=== PATIENT | female | born 1985 | race Caucasian/White ===

== ENCOUNTER → 2016-08-20 | Outpatient (CLI) | payer OTHER ==
[~2016-08-20] MED LIST: 'PARAFON FORTE500 M1 PO; AMOXICILLIN500 M2 PO; ANTIVERT/2525 MG PO; BACTRIM DS 8001 TA1 PO; CIPROFLOXACIN500 MG PO; DEBROX15 ML OT; KEFLEX500 MG PO; MOTRIN800 MG PO; NAPROSYN500 MG PO; NKHM; SYNTHROID RP0.088 MG PO; ULTRAM50 MG PO; VIBRAMYCIN100 MG PO; VICODIN 5/500 505 MG PO; VICODIN 500 MG-1 TAB PO; ZYRTEC10 MG PO
[2016-08-20 12:42] LABS: HEMATOCRIT 37.3 % (37.0-47.0); HEMOGLOBIN 11.8 g/dl (12.0-16.0); MEAN CELL VOLUME 93.7 fl (81.0-99.0); MEAN CORPUSCULAR HGB 29.6 pg (27.0-31.0); MEAN CORPUSCULAR HGB CONC 31.6 g/dl (33.0-37.0); MEAN PLATELET VOLUME 9.5 fl (9.6-12.3); RED BLOOD COUNT 3.98 10*6/uL (4.10-5.10); RED CELL DISTRI WIDTH 12.6 % (0-14.5)
[2016-08-20 13:21] LABS: ALBUMIN 3.7 gm/dl (3.1-4.5); ALKALINE PHOSPHATASE 54 U/L (45-117); BILIRUBIN, TOTAL 0.4 mg/dl (0.2-1.0); BUN 11 mg/dl (7-24); CARBON DIOXIDE 27 mmol/L (21-32); CHLORIDE 106 mmol/L (98-107); CHOLESTEROL 185 mg/dL (<200); EST GLOM FILT AFRICAN AMERICAN > 60 ml/min; GLUCOSE 89 mg/dL (65-99); HDL CHOLESTEROL 52 mg/dl (40-60); LDL CHOLESTEROL 91 mg/dL (9-159); POTASSIUM 3.8 mmol/L (3.5-5.1); SGOT/AST 9 IU/L (3-35); SGPT/ALT 21 U/L (12-78); SODIUM 140 mmol/L (136-145); THYROID STIM HORMONE (HS) 0.732 uIU/ml (0.358-4.75); TOTAL PROTEIN 6.9 gm/dL (6.4-8.2); TRIGLYCERIDES 211 mg/dl (<150); VLDL CHOLESTEROL 42 mg/dL (6-40)
== END | disposition home or self-care (01) ==
LOC: LAB 12:12
PROVIDERS: Family Medicine
DX: E03.9 Hypothyroidism, unspecified (principal); Z79.899 Other long term (current) drug therapy

== ENCOUNTER → 2017-05-22 | Outpatient (CLI) | payer OTHER ==
[2017-05-22 11:38] LABS: HEMATOCRIT 36.4 % (37.0-47.0); HEMOGLOBIN 11.6 g/dl (12.0-16.0); MEAN CELL VOLUME 89.4 fl (81.0-99.0); MEAN CORPUSCULAR HGB 28.5 pg (27.0-31.0); MEAN CORPUSCULAR HGB CONC 31.9 g/dl (33.0-37.0); MEAN PLATELET VOLUME 9.6 fl (9.6-12.3); RED BLOOD COUNT 4.07 10*6/uL (4.10-5.10); RED CELL DISTRI WIDTH 12.5 % (0-14.5); WHITE BLOOD COUNT 6.5 10*3/uL (4.8-10.8)
[2017-05-22 12:12] LABS: ALBUMIN 3.7 gm/dl (3.1-4.5); ALKALINE PHOSPHATASE 76 U/L (45-117); BUN 12 mg/dl (7-24); CHLORIDE 106 mmol/L (98-107); CHOLESTEROL 207 mg/dL (<200); CREATININE 0.68 mg/dL (0.55-1.02); FREE T4 0.85 ng/dl (0.76-1.46); HDL CHOLESTEROL 41 mg/dl (40-60); LDL CHOLESTEROL 117 mg/dL (9-159); POTASSIUM 3.7 mmol/L (3.5-5.1); SGOT/AST 24 IU/L (3-35); SGPT/ALT 50 U/L (12-78); SODIUM 140 mmol/L (136-145); TOTAL PROTEIN 7.6 gm/dL (6.4-8.2); TRIGLYCERIDES 247 mg/dl (<150); VLDL CHOLESTEROL 49 mg/dL (6-40)
[2017-05-23 06:09] LABS: FREE T3 010389 3.8 pg/mL (2.0-4.4)
[2017-05-24 04:06] LABS: TESTOSTERONE FREE, (DIRECT) 2.8 pg/mL (0.0-4.2)
== END | disposition home or self-care (01) ==
LOC: LAB 11:07
PROVIDERS: Family Medicine
DX: E03.9 Hypothyroidism, unspecified (principal); R63.5 Abnormal weight gain; E55.9 Vitamin D deficiency, unspecified; E74.00 Glycogen storage disease, unspecified; F41.1 Generalized anxiety disorder; R53.83 Other fatigue

== ENCOUNTER → 2017-11-26 | Outpatient (CLI) | payer OTHER | END | disposition home or self-care (01) | LOC: US 11-19 09:30 | DX: K76.0 Fatty (change of) liver, not elsewhere classified (principal); Z90.49 Acquired absence of other specified parts of digestive tract ==

== ENCOUNTER → 2017-11-28 | Outpatient (CLI) | payer OTHER | END | disposition home or self-care (01) | LOC: US 11-26 13:30 | DX: R10.84 Generalized abdominal pain (principal); R10.2 Pelvic and perineal pain ==

== ENCOUNTER 2018-07-13 18:29 | Emergency (ER) | payer OTHER ==
[~2018-07-13] VITALS: Wt 76.2 kg
--- NOTE | ~2018-07-13 | EKG ---
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
[2018-07-13 19:11] LABS: HEMOGLOBIN 12.4 g/dl (12.0-16.0); MEAN CORPUSCULAR HGB 28.3 pg (27.0-31.0); MEAN CORPUSCULAR HGB CONC 31.8 g/dl (33.0-37.0); MEAN PLATELET VOLUME 9.2 fl (9.6-12.3); PLATELET COUNT AUTOMATED 286 10*3/uL (130-400); RED BLOOD COUNT 4.38 10*6/uL (4.10-5.10); RED CELL DISTRI WIDTH 13.3 % (0-14.5); WHITE BLOOD COUNT 14.8 10*3/uL (4.8-10.8)
[2018-07-13 19:29] LABS: ALBUMIN 3.7 gm/dl (3.1-4.5); ALKALINE PHOSPHATASE 74 U/L (45-117); BUN 11 mg/dl (7-24); CHLORIDE 107 mmol/L (98-107); CREATININE 0.81 mg/dL (0.55-1.02); LIPASE 246 U/L (73-393); POTASSIUM 3.6 mmol/L (3.5-5.1); SGOT/AST 10 IU/L (3-35); SGPT/ALT 23 U/L (12-78); SODIUM 138 mmol/L (136-145); TOTAL PROTEIN 8.1 gm/dL (6.4-8.2)
[2018-07-13 19:30] LABS: TROPONIN I < 0.015 ng/ml (<0.045)
[2018-07-13 19:50] LABS: PLATELET SUFFICIENCY NORMAL (NORMAL); TOTAL CELLS COUNTED 100 #CELLS
[2018-07-13 20:27] LABS: BILIRUBIN NEGATIVE (NEGATIVE); BLOOD NEGATIVE (NEGATIVE); CLARITY CLEAR (CLEAR); COLOR YELLOW (YELLOW); GLUCOSE NEGATIVE (NEGATIVE); KETONE NEGATIVE (NEGATIVE); LEUKO ESTERASE NEGATIVE (NEGATIVE); NITRITE NEGATIVE (NEGATIVE); PH 6.5 (5.0-9.0); SPECIFIC GRAVITY 1.025 (1.005-1.030); UROBILINOGEN 0.2 E.U./dl (0.2-1.0)
[2018-07-13 20:42] LABS: BACTERIA 2+; EPITHELIAL CELLS 16-20; RBC 0-2 rbc/hpf (0-2)
[2018-07-13] MEDS ORDERED: ANAPROX DS550 MG PO (23:20)
== END 2018-07-13 23:38 | disposition home or self-care (01) ==
LOC: ED 18:29
PROVIDERS: Nurse Practitioner Family
DX: R09.1 Pleurisy (principal); R42 Dizziness and giddiness; R19.7 Diarrhea, unspecified; R11.0 Nausea; R00.0 Tachycardia, unspecified; R07.9 Chest pain, unspecified; R10.84 Generalized abdominal pain; E03.9 Hypothyroidism, unspecified; Z79.899 Other long term (current) drug therapy; Z90.49 Acquired absence of other specified parts of digestive tract

== ENCOUNTER 2018-10-12 07:50 | Emergency (ER) | payer OTHER ==
[~2018-10-12] VITALS: Ht 162.5 cm; Wt 80.7 kg
[~2018-10-12 07:50] MED LIST changes: +ANAPROX DS550 MG PO; +PYRIDIUM200 M1 PO; +SEPTDS PO
[2018-10-12 08:05] LABS: BILIRUBIN NEGATIVE (NEGATIVE); BLOOD TRACE-INTACT (NEGATIVE); CLARITY CLOUDY (CLEAR); COLOR YELLOW (YELLOW); GLUCOSE NEGATIVE (NEGATIVE); KETONE NEGATIVE (NEGATIVE); LEUKO ESTERASE 3+ (NEGATIVE); NITRITE NEGATIVE (NEGATIVE); SPECIFIC GRAVITY <= 1.005 (1.005-1.030); UROBILINOGEN 0.2 E.U./dl (0.2-1.0)
[2018-10-12 08:27] LABS: BACTERIA 3+; WBC TNTC wbc/hpf (0-5)
[2018-10-12] MEDS ORDERED: SEPTDS PO (08:40)
== END 2018-10-12 09:03 | disposition home or self-care (01) ==
LOC: ED 07:50
PROVIDERS: Emergency Medicine
DX: N39.0 Urinary tract infection, site not specified (principal); Z79.899 Other long term (current) drug therapy

== ENCOUNTER → 2019-01-24 | Outpatient (CLI) | payer OTHER ==
[~2019-01-24] MED LIST changes: +CLINDAMYCIN HC300 MG PO; +Motrin,Rufen800 MG PO; +NORCO 10-325 T1 EACH PO
[2019-01-24 15:31] LABS: HEMATOCRIT 37.4 % (37.0-47.0); HEMOGLOBIN 11.7 g/dl (12.0-16.0); MEAN CELL VOLUME 92.8 fl (81.0-99.0); MEAN CORPUSCULAR HGB CONC 31.3 g/dl (33.0-37.0); MEAN PLATELET VOLUME 9.2 fl (9.6-12.3); RED BLOOD COUNT 4.03 10*6/uL (4.10-5.10); RED CELL DISTRI WIDTH 12.7 % (0-14.5); WHITE BLOOD COUNT 7.1 10*3/uL (4.8-10.8)
[2019-01-24 16:09] LABS: ALBUMIN 3.7 gm/dl (3.1-4.5); ALKALINE PHOSPHATASE 100 U/L (45-117); BUN 19 mg/dl (7-24); CHLORIDE 106 mmol/L (98-107); CHOLESTEROL 182 mg/dL (<200); CREATININE 0.72 mg/dL (0.55-1.02); FREE T4 1.04 ng/dl (0.76-1.46); HDL CHOLESTEROL 34 mg/dl (40-60); LDL CHOLESTEROL 86 mg/dL (9-159); POTASSIUM 3.8 mmol/L (3.5-5.1); SGOT/AST 107 IU/L (3-35); SGPT/ALT 93 U/L (12-78); SODIUM 140 mmol/L (136-145); TOTAL PROTEIN 7.7 gm/dL (6.4-8.2); TRIGLYCERIDES 312 mg/dl (<150); VLDL CHOLESTEROL 62 mg/dL (6-40)
== END | disposition home or self-care (01) ==
LOC: LAB 14:37
PROVIDERS: Family Medicine
DX: E03.9 Hypothyroidism, unspecified (principal); E55.9 Vitamin D deficiency, unspecified; E78.00 Pure hypercholesterolemia, unspecified; R53.83 Other fatigue

== ENCOUNTER 2019-02-10 06:37 | Emergency (ER) | payer OTHER ==
[~2019-02-10] VITALS: Ht 162.5 cm; Wt 80.7 kg
[~2019-02-10 06:37] MED LIST changes: -CLINDAMYCIN HC300 MG PO; -Motrin,Rufen800 MG PO; -NORCO 10-325 T1 EACH PO
[2019-02-10] MEDS ORDERED: AMOXICILLIN500 M2 PO (07:05)
[2019-02-10] MEDS ORDERED: NORCO 10-325 T1 EACH PO (07:07)
[2019-02-11] MEDS ORDERED: CLINDAMYCIN HC300 MG PO (02:50)
[2019-02-11] MEDS ORDERED: Motrin,Rufen800 MG PO (02:51)
== END 2019-02-10 07:19 | disposition home or self-care (01) ==
LOC: ED 06:37
DX: K08.89 Other specified disorders of teeth and supporting structures (principal); R51 Headache; Z79.899 Other long term (current) drug therapy

== ENCOUNTER 2019-02-11 00:55 | Emergency (ER) | payer OTHER ==
[~2019-02-11] VITALS: Ht 162.5 cm; Wt 80.7 kg
[~2019-02-11 00:55] MED LIST changes: +NORCO 10-325 T1 EACH PO
[2019-02-11 01:21] LABS: BASO % 0.3 % (0.0-1.0); EOS # 0.1 10*3/uL (0.0-0.4); EOS % 0.6 % (1.0-4.0); HEMATOCRIT 36.8 % (37.0-47.0); HEMOGLOBIN 11.7 g/dl (12.0-16.0); LYMPH # 2.2 10*3/uL (1.3-4.4); LYMPH % 19.4 % (27.0-41.0); MEAN CELL VOLUME 90.9 fl (81.0-99.0); MEAN CORPUSCULAR HGB 28.9 pg (27.0-31.0); MEAN CORPUSCULAR HGB CONC 31.8 g/dl (33.0-37.0); MEAN PLATELET VOLUME 9.3 fl (9.6-12.3); MONO # 0.6 10*3/uL (0.1-1.0); MONO % 5.3 % (3.0-9.0); NEUT # 8.5 10*3/uL (2.3-7.9); NEUT % 74.1 % (47.0-73.0); PLATELET COUNT AUTOMATED 328 10*3/uL (130-400); RED BLOOD COUNT 4.05 10*6/uL (4.10-5.10); RED CELL DISTRI WIDTH 12.7 % (0-14.5); WHITE BLOOD COUNT 11.5 10*3/uL (4.8-10.8)
[2019-02-11 01:34] LABS: BUN 10 mg/dl (7-24); CHLORIDE 105 mmol/L (98-107); CREATININE 0.87 mg/dL (0.55-1.02); POTASSIUM 3.5 mmol/L (3.5-5.1); SODIUM 139 mmol/L (136-145)
[2019-02-11] MEDS ORDERED: CLINDAMYCIN HC300 MG PO (02:50)
[2019-02-11] MEDS ORDERED: Motrin,Rufen800 MG PO (02:51)
== END 2019-02-11 03:10 | disposition home or self-care (01) ==
LOC: ED 00:55
PROVIDERS: Emergency Medicine Emergency Medical Services
DX: K04.01 Reversible pulpitis (principal); K02.9 Dental caries, unspecified; Z79.899 Other long term (current) drug therapy; Z79.2 Long term (current) use of antibiotics; Z90.49 Acquired absence of other specified parts of digestive tract

== ENCOUNTER → 2019-12-30 | Outpatient (CLI) | payer SELFPAY ==
[~2019-12-30] MED LIST changes: +CLINDAMYCIN HC300 MG PO; +Motrin,Rufen800 MG PO
[2019-12-30 13:30] LABS: HEMATOCRIT 35.4 % (37.0-47.0); MEAN CELL VOLUME 89.2 fl (81.0-99.0); MEAN CORPUSCULAR HGB 27.7 pg (27.0-31.0); MEAN CORPUSCULAR HGB CONC 31.1 g/dl (33.0-37.0); MEAN PLATELET VOLUME 9.2 fl (9.6-12.3); RED BLOOD COUNT 3.97 10*6/uL (4.10-5.10); RED CELL DISTRI WIDTH 13.9 % (0-14.5); WHITE BLOOD COUNT 8.1 10*3/uL (4.8-10.8)
[2019-12-30 13:48] LABS: ALBUMIN 3.5 gm/dl (3.1-4.5); ALKALINE PHOSPHATASE 66 U/L (45-117); BUN 11 mg/dl (7-24); CHLORIDE 109 mmol/L (98-107); CHOLESTEROL 166 mg/dL (<200); CREATININE 0.75 mg/dL (0.55-1.02); HDL CHOLESTEROL 34 mg/dl (40-60); LDL CHOLESTEROL 88 mg/dL (9-159); POTASSIUM 3.9 mmol/L (3.5-5.1); SGOT/AST 13 IU/L (3-35); SGPT/ALT 29 U/L (12-78); SODIUM 140 mmol/L (136-145); TOTAL PROTEIN 7.5 gm/dL (6.4-8.2); TRIGLYCERIDES 218 mg/dl (<150); VLDL CHOLESTEROL 44 mg/dL (6-40)
[2019-12-30 13:53] LABS: THYROID STIM HORMONE (HS) 0.841 uIU/ml (0.358-4.75)
== END | disposition home or self-care (01) ==
LOC: LAB 13:14
PROVIDERS: Family Medicine
DX: E03.9 Hypothyroidism, unspecified (principal); E78.00 Pure hypercholesterolemia, unspecified; R53.83 Other fatigue; E55.9 Vitamin D deficiency, unspecified

== ENCOUNTER 2020-06-21 17:18 | Emergency (ER) | payer OTHER ==
[~2020-06-21] VITALS: Wt 73.0 kg
[2020-06-21] MEDS ORDERED: PREDNISONE20 M1 PO (20:12)
== END 2020-06-21 20:27 | disposition home or self-care (01) ==
LOC: ED 17:18
DX: T50.905A Adverse effect of unspecified drugs, medicaments and biological substances, initial encounter (principal); Z79.899 Other long term (current) drug therapy; Y92.89 Other specified places as the place of occurrence of the external cause

== ENCOUNTER 2020-12-03 19:04 | Emergency (ER) | payer OTHER ==
[~2020-12-03] VITALS: Ht 162.6 cm; Wt 73.5 kg
[~2020-12-03 19:04] MED LIST changes: +PREDNISONE20 M1 PO
[2020-12-03 19:54] VITALS: BP 154/89
[2020-12-03 20:20] LABS: BILIRUBIN Negative (Negative); BLOOD 2+ (Negative); CLARITY Turbid (Clear); COLOR Yellow (Yellow); GLUCOSE Negative (Negative); KETONE Negative (Negative); LEUKO ESTERASE 3+ (Negative); NITRITE Negative (Negative); SPECIFIC GRAVITY 1.015 (1.001-1.030); UROBILINOGEN 0.2 E.U./dl (0.0-1.0)
[2020-12-03 20:34] LABS: WBC TNTC wbc/hpf (0-5)
[2020-12-03 20:35] LABS: BACTERIA 1+
[2020-12-03 20:51] LABS: BASO # 0.1 10*3/uL (0.0-0.1); BASO % 0.4 % (0.0-1.0); EOS % 0.1 % (1.0-4.0); HEMATOCRIT 37.9 % (37.0-47.0); LYMPH # 1.7 10*3/uL (1.3-4.4); LYMPH % 12.3 % (27.0-41.0); MEAN CELL VOLUME 91.1 fl (81.0-99.0); MEAN CORPUSCULAR HGB 28.4 pg (27.0-31.0); MEAN CORPUSCULAR HGB CONC 31.1 g/dl (33.0-37.0); MONO # 0.5 10*3/uL (0.1-1.0); MONO % 3.2 % (3.0-9.0); NEUT # 11.7 10*3/uL (2.3-7.9); NEUT % 83.4 % (47.0-73.0); PLATELET COUNT AUTOMATED 329 10*3/uL (130-400); RED BLOOD COUNT 4.16 10*6/uL (4.10-5.10); WHITE BLOOD COUNT 14.1 10*3/uL (4.8-10.8)
[2020-12-03 21:06] LABS: ALBUMIN 3.9 gm/dl (3.1-4.5); ALKALINE PHOSPHATASE 72 U/L (45-117); BUN 11 mg/dl (7-24); CHLORIDE 103 mmol/L (98-107); POTASSIUM 3.4 mmol/L (3.5-5.1); SGOT/AST 7 IU/L (3-35); SGPT/ALT 17 U/L (12-78); SODIUM 136 mmol/L (136-145); TOTAL PROTEIN 7.7 gm/dL (6.4-8.2)
[2020-12-04 04:09] VITALS: BP 107/73
[2020-12-04 11:56] VITALS: BP 130/78
[2020-12-04 15:42] VITALS: BP 126/84
== END 2020-12-05 00:30 | disposition left against medical advice (07) ==
LOC: ED 19:04 → EDHOLD 22:49
PROVIDERS: Emergency Medicine
DX: Z79.899 Other long term (current) drug therapy (principal); Z79.2 Long term (current) use of antibiotics; Z90.49 Acquired absence of other specified parts of digestive tract; F17.200 Nicotine dependence, unspecified, uncomplicated; N12 Tubulo-interstitial nephritis, not specified as acute or chronic

== ENCOUNTER 2023-02-23 22:09 | Emergency (ER) | payer OTHER ==
[~2023-02-23] VITALS: Ht 167.6 cm; Wt 79.8 kg
[2023-02-23 22:49] LABS: BASO # 0.1 10*3/uL (0.0-0.1); BASO % 0.7 % (0.0-1.0); EOS % 0.1 % (1.0-4.0); HEMATOCRIT 38.7 % (37.0-47.0); MEAN CELL VOLUME 83.4 fl (81.0-99.0); MEAN CORPUSCULAR HGB 27.4 pg (27.0-31.0); MEAN CORPUSCULAR HGB CONC 32.8 g/dl (33.0-37.0); MEAN PLATELET VOLUME 9.1 fl (9.6-12.3); MONO # 0.4 10*3/uL (0.1-1.0); MONO % 5.1 % (3.0-9.0); NEUT % 66.7 % (47.0-73.0); PLATELET COUNT AUTOMATED 488 10*3/uL (130-400); RED BLOOD COUNT 4.64 10*6/uL (4.10-5.10); RED CELL DISTRI WIDTH 12.8 % (0-14.5); WHITE BLOOD COUNT 7.5 10*3/uL (4.8-10.8)
[2023-02-23 23:13] LABS: ALKALINE PHOSPHATASE 68 U/L (46-116); BUN 9 mg/dl (9-23); CHLORIDE 104 mmol/L (98-107); LIPASE 152 U/L (12-53); POTASSIUM 3.3 mmol/L (3.4-5.1); SGPT/ALT 7 U/L (10-49); TOTAL PROTEIN 7.6 gm/dL (6.0-8.0)
[2023-02-23 23:19] LABS: BETA-HCG, QUANT < 3.0 mIU/mL (3-10)
[2023-02-23 23:42] LABS: BILIRUBIN Negative (Negative); BLOOD Negative (Negative); CLARITY Turbid (Clear); COLOR Dark Yellow (Yellow); GLUCOSE Negative (Negative); KETONE 1+ (Negative); LEUKO ESTERASE Trace (Negative); NITRITE Negative (Negative); SPECIFIC GRAVITY >= 1.030 (1.001-1.030)
[2023-02-23 23:59] LABS: BACTERIA TRACE; EPITHELIAL CELLS TNTC; MUCOUS 3+
[2023-02-24] MEDS ORDERED: AMOX-CLAV 875-1 EACH PO (00:54)
[2023-02-24] MEDS ORDERED: PREDNISONE50 MG PO (00:54)
== END 2023-02-24 01:00 | disposition home or self-care (01) ==
LOC: ED 22:09
PROVIDERS: Internal Medicine
DX: H66.90 Otitis media, unspecified, unspecified ear (principal); R53.81 Other malaise; R11.2 Nausea with vomiting, unspecified; R50.9 Fever, unspecified; E03.9 Hypothyroidism, unspecified

== ENCOUNTER 2024-10-06 10:10 | Emergency (ER) | payer OTHER ==
[~2024-10-06] VITALS: Ht 162.5 cm; Wt 90.7 kg
[~2024-10-06 10:10] MED LIST changes: +AMOX-CLAV 875-1 EACH PO; +PREDNISONE50 MG PO
[2024-10-06] MEDS ORDERED: ACETAMINOPHEN 325 MG TAB PO ONE (12:00)
[2024-10-06] MEDS ORDERED: Oseltamivir Phosphate 75 MG CAP PO ONE (12:00)
[2024-10-06] MEDS ORDERED: TAMIFLU 75MG CA75 MG PO (12:10)
== END 2024-10-06 12:17 | disposition home or self-care (01) ==
LOC: ED 10:10
DX: J10.1 Influenza due to other identified influenza virus with other respiratory manifestations (principal); Z20.822 Contact with and (suspected) exposure to COVID-19